=== PATIENT | female | born 1960 | race Two or more races ===

== ENCOUNTER 2020-05-17 15:04 | Inpatient (IN) | payer OTHER ==
[~2020-05-17] VITALS: Ht 162.6 cm; Wt 83.5 kg
[2020-05-26] MEDS ORDERED: INTESTINEX680 M1 PO (13:48)
[2020-05-26] MEDS ORDERED: PRILOSEC OTC20 MG PO (13:48)
[2020-05-26] MEDS ORDERED: ULTRACET PO (13:48)
== END 2020-05-26 15:12 | disposition home or self-care (01) | DRG 392 ==
LOC: ER 15:04 → SURG 17:27 → SURH 05-25 13:23
PROVIDERS: ADMIT Surgery; ATTEND Surgery
PROC: 02HV33Z Insertion of Infusion Device into Superior Vena Cava, Percutaneous Approach (ICD-10-PCS; 2020-05-19)
PROC: BW21YZZ Computerized Tomography (CT Scan) of Abdomen and Pelvis using Other Contrast (ICD-10-PCS; 2020-05-21)
PROC: 3E0F7SF Introduction of Other Gas into Respiratory Tract, Via Natural or Artificial Opening (ICD-10-PCS; 2020-05-23)
PROC: 0J9B0ZX Drainage of Perineum Subcutaneous Tissue and Fascia, Open Approach, Diagnostic (ICD-10-PCS; 2020-05-23)
PROC: 8E0ZXY6 Isolation (ICD-10-PCS; principal; 2020-05-25)
DX: K57.20 Diverticulitis of large intestine with perforation and abscess without bleeding (principal); Z16.12 Extended spectrum beta lactamase (ESBL) resistance; I11.9 Hypertensive heart disease without heart failure; J45.20 Mild intermittent asthma, uncomplicated; N28.1 Cyst of kidney, acquired; K61.39 Other ischiorectal abscess; B96.29 Other Escherichia coli [E. coli] as the cause of diseases classified elsewhere; Z20.822 Contact with and (suspected) exposure to COVID-19; D64.9 Anemia, unspecified

== ENCOUNTER 2020-07-06 09:24 | Outpatient (CLI) | payer OTHER ==
[~2020-07-06 09:24] MED LIST: INTESTINEX680 M1 PO; PRILOSEC OTC20 MG PO; ULTRACET PO
== END 2020-07-06 10:03 | disposition home or self-care (01) ==
LOC: TOM 09:24
PROVIDERS: ATTEND Surgery
DX: K65.1 Peritoneal abscess (principal); K57.20 Diverticulitis of large intestine with perforation and abscess without bleeding; K60.3 Anal fistula

== ENCOUNTER 2020-08-08 10:30 | Inpatient (IN) | payer OTHER ==
[~2020-08-08] VITALS: Ht 162.6 cm; Wt 79.8 kg
[2020-08-08] MEDS ORDERED: HYZAAR 100-251 EACH PO (15:24)
[2020-08-19] MEDS ORDERED: OXYC1TAB9 PO (11:39)
[2020-08-19] MEDS ORDERED: HYOSCYAMINE0.125 M1 SL (11:39)
[2020-08-19] MEDS ORDERED: CARAFATE1 GM PO (11:39)
== END 2020-08-19 13:28 | disposition home or self-care (01) | DRG 329 ==
LOC: SURH 08-15 07:00 → O/R 08-15 07:36 → SURH 08-15 10:30 → SURG 08-15 16:13
PROVIDERS: ADMIT Surgery; ATTEND Surgery
PROC: 0DBP4ZZ Excision of Rectum, Percutaneous Endoscopic Approach (ICD-10-PCS; 2020-08-15)
PROC: 0DBN4ZZ Excision of Sigmoid Colon, Percutaneous Endoscopic Approach (ICD-10-PCS; principal; 2020-08-15 07:00)
DX: K57.20 Diverticulitis of large intestine with perforation and abscess without bleeding (principal); K65.1 Peritoneal abscess; K55.1 Chronic vascular disorders of intestine; K60.3 Anal fistula; K21.9 Gastro-esophageal reflux disease without esophagitis; I11.9 Hypertensive heart disease without heart failure